=== PATIENT | female | born 1960 | race Caucasian/White ===

== ENCOUNTER 2018-08-17 07:58 | Day surgery (SDC) | payer OTHER ==
[~2018-08-17] VITALS: Ht 157.5 cm; Wt 87.5 kg
[~2018-08-17 07:58] MED LIST: [UNRECOGNIZED DRUG - REMARK]
[2018-08-17] MEDS ORDERED: CEFAZOLIN SODIUM 1 GM/D5W PM 50 ML IV SCH (08:34)
[2018-08-17] MEDS ORDERED: BACL20TA4 PO (08:51)
[2018-08-17] MEDS ORDERED: TAMO20TA3 PO (08:51)
[2018-08-17] MEDS ORDERED: PROPOFOL 200 MG/20 ML VIAL IV ONE (10:21)
[2018-08-17] MEDS ORDERED: BUPIVACAINE-MPF 0.25% 30 ML VIAL INJ ONE (10:27)
[2018-08-17] MEDS ORDERED: fentaNYL 0.05 MG/ML VIAL ONE (10:33)
[2018-08-17] MEDS ORDERED: MIDAZOLAM 2 MG/2 ML VIAL ONE (10:33)
[2018-08-17] MEDS ORDERED: LACTATED RINGERS 1,000 ML IV SCH (10:50)
[2018-08-17] MEDS ORDERED: diphenhydrAMINE 50 MG/ML VIAL IVP PRN (10:50)
[2018-08-17] MEDS ORDERED: ONDANSETRON 4 MG/2 ML VIAL IVP PRN (10:50)
[2018-08-17] MEDS ORDERED: MEPERIDINE 25 MG/ML SYR IVP PRN (10:50)
[2018-08-17] MEDS ORDERED: HYDROmorphone 1 MG/ML AMP IVP PRN ×2 (10:50→11:10)
[2018-08-17] MEDS ORDERED: ACETAMINOPHEN 325 MG TAB PO PRN (11:10)
[2018-08-17] MEDS ORDERED: HYDROcodone/APAP 5/325 MG 1 TAB TAB PO PRN (11:10)
[2018-08-17] MEDS ORDERED: MORPHINE SULFATE 4 MG/ML SYR IV PRN (11:10)
[2018-08-17] MEDS ORDERED: MORPHINE SULFATE 2 MG/ML SYR IVP PRN (11:10)
[2018-08-17] MEDS ORDERED: ONDANSETRON 4 MG/2 ML VIAL IV PRN (11:10)
== END 2018-08-17 12:40 | disposition home or self-care (01) ==
LOC: MDS 07:58 → MMU 07:59 → MDS 12:40
PROVIDERS: ATTEND Surgery
DX: Z45.2 Encounter for adjustment and management of vascular access device (principal); M19.90 Unspecified osteoarthritis, unspecified site; K21.9 Gastro-esophageal reflux disease without esophagitis; F32.9 Major depressive disorder, single episode, unspecified; Z79.1 Long term (current) use of non-steroidal anti-inflammatories (NSAID); E66.9 Obesity, unspecified; Z68.35 Body mass index [BMI] 35.0-35.9, adult; F17.210 Nicotine dependence, cigarettes, uncomplicated; Z85.3 Personal history of malignant neoplasm of breast; Z79.899 Other long term (current) drug therapy; Z80.42 Family history of malignant neoplasm of prostate; Z80.1 Family history of malignant neoplasm of trachea, bronchus and lung
CPT/HCPCS: 36590; 71045; J0690; J2250; J2704; J3010; J3490; J7030

== ENCOUNTER 2019-04-08 07:28 | Day surgery (SDC) | payer OTHER ==
[~2019-04-08] VITALS: Ht 157.5 cm; Wt 88.5 kg
[~2019-04-08 07:28] MED LIST changes: +BACL20TA4 PO; +TAMO20TA3 PO
[2019-04-08] MEDS ORDERED: MIDAZOLAM 2 MG/2 ML VIAL ONE (08:51)
[2019-04-08] MEDS ORDERED: LIDOCAINE 2% 100 MG/5 ML UJET TP ONE (08:51)
[2019-04-08] MEDS ORDERED: fentaNYL 0.05 MG/ML VIAL ONE (08:51)
[2019-04-08] MEDS ORDERED: MIDAZOLAM 2 MG/2 ML VIAL IVP ONE (09:17)
[2019-04-08] MEDS ORDERED: fentaNYL 0.05 MG/ML VIAL IVP ONE (09:19)
[2019-04-08] MEDS ORDERED: fentaNYL 0.025 MG/HR PATCH TD SCH (10:15)
== END 2019-04-08 10:30 | disposition home or self-care (01) ==
LOC: MOR 07:28 → MMU 07:29 → MOR 10:30
PROVIDERS: ATTEND Internal Medicine Gastroenterology
DX: Z12.11 Encounter for screening for malignant neoplasm of colon (principal); D12.4 Benign neoplasm of descending colon; K44.9 Diaphragmatic hernia without obstruction or gangrene; K21.9 Gastro-esophageal reflux disease without esophagitis; E66.9 Obesity, unspecified; Z68.33 Body mass index [BMI] 33.0-33.9, adult; Z98.890 Other specified postprocedural states; Z85.3 Personal history of malignant neoplasm of breast
CPT/HCPCS: 36415; 43239; 45385; 86677; J2250; J3010